=== PATIENT | female | born 1945 | race Caucasian/White ===

== ENCOUNTER 2017-08-10 09:49 | Outpatient (CLI) | payer MEDICARE ==
--- NOTE | 2017-08-10 10:14 | RAD ---
LEFT HIP TWO VIEWS: Clinical history: Left hip pain. FINDINGS: There is minimal joint space loss of the left hip. No significant arthropathy otherwise depicted. The re is no fracture or dislocation. Sclerotic density overlies the lateral aspect of the left ileum. IMPRESSION: No significant abnormality of the left hip. POS: [facility]
--- NOTE | 2017-08-10 10:18 | RAD ---
THREE LATERAL VIEWS OF THE LUMBAR SPINE Technique: Lumbar spine with neutral, flexion and extension positioning. Clinical history: Low back pain with left lower extremity radiculopathy. FINDINGS: Neutral view of the lumbar spine reveals maintained vertebral body heights and alignment. Disc space heights are also relatively well preserved. There is mild to moderate facet osteoarthritis at the low er lumbar spine. Incidental note of atherosclerosis. Evaluation of flexion and extension views reveals no obvious translational motion. Metallic clips overlie the posterior abdomen. IMPRESSION: 1. No significant subluxation or abnormal translation of motion identified. 2. There is mild degenerative changes of the lumbar spine. POS: [facility]
--- NOTE | 2017-08-10 11:22 | CT ---
CT LUMBAR SPINE WITHOUT CONTRAST: Date: 08/10/17 HISTORY: Lumbar radiculopathy. Low back pain radiating down left hip. COMPARISON: None TECHNIQUE: Lumbar spine CT is performed without contrast. Reformatted images are submitted for interpretation. FINDINGS: There is symmetric attenuation of the psoas muscles. There is atherosclerosis of a nonaneurysmal aort a. Gallbladder is surgically absent. Visualized alimentary canal is unremarkable. Visualized solid organs are unremarkable with the except ion of the kidneys. Right kidney is unremarkable. However, there appear to be left parapelvic cysts w ith questionable left-sided hydronephrosis. Evaluation is limited on this exam. Limited evaluation of the contents of the central spinal canal and neural foramina due to technique. Lumbar spine vertebral body height is maintained. There is no fracture. No spondylolisthesis. No spon dylolysis. On the coronal reformatted images, no malalignment. T12-L1: No high grade central canal stenosis or high grade foraminal narrowing. L1-L2: No high grade central canal stenosis or high grade foraminal narrowing. L2-L3: No high grade central canal stenosis. Foramina are patent. L3-L4: No high grade central canal stenosis. Foramina are patent. L4-L5: Generalized disc bulge with ligamentum flavum thickening and facet hypertrophy. Mild central canal st enosis. Mild bilateral foraminal narrowing. L5-S1: No significant posterior disc abnormality. No significant central canal stenosis. Neural foramina are patent bilaterally. IMPRESSION: 1. No high grade central canal stenosis or high grade foraminal narrowing. 2. Mild central canal stenosis at L4-L5 due to disc material and posterior element hypertrophy. POS: [facility]
== END 2017-08-10 09:50 | disposition home or self-care (01) ==
LOC: TBSIIMAG 09:49
PROVIDERS: ATTEND Neurological Surgery
DX: M51.16 Intervertebral disc disorders with radiculopathy, lumbar region (principal); M25.552 Pain in left hip; M48.061 Spinal stenosis, lumbar region without neurogenic claudication; M47.26 Other spondylosis with radiculopathy, lumbar region
CPT/HCPCS: 72100; 72131

== ENCOUNTER 2017-10-20 16:39 | Outpatient (CLI) | payer MEDICARE | END 2017-10-20 16:40 | disposition home or self-care (01) | LOC: BICRAD 16:39 | PROVIDERS: ATTEND Family Medicine | DX: R05 Cough (principal) | CPT/HCPCS: 71046 ==

== ENCOUNTER 2018-02-22 10:13 | Outpatient (CLI) | payer MEDICARE | END 2018-02-22 10:14 | disposition home or self-care (01) | LOC: BICMAMMO 10:13 | PROVIDERS: ATTEND Family Medicine | DX: Z12.31 Encounter for screening mammogram for malignant neoplasm of breast (principal); Z80.3 Family history of malignant neoplasm of breast | CPT/HCPCS: 77063; 77067 ==

== ENCOUNTER 2018-06-07 22:48 | Inpatient (IN) | payer MEDICARE ==
[2018-06-07] MEDS ORDERED: Nitroglycerin 2% Ointment 1 INCH/1 GM Packet ONE (23:24)
[2018-06-07] MEDS ORDERED: Fentanyl 100 MCG/2 ML VIAL ONE (23:24)
[2018-06-07 23:31] LABS: #Basophils 0.1 thou/uL (0.0-0.2); #Eosinphils 0.2 thou/uL (0.0-0.7); #Lymphocytes 1.7 thou/uL (1.20-3.40); #Monocytes 0.4 thou/uL (0.11-0.59); #Neutrophils 6.5 thou/uL (1.40-6.50); %Basophils 0.6 % (0.0-1.0); %Eosinophils 1.8 % (0.0-10.0); %Lymphocytes 19.4 % (21.0-51.0); %Monocytes 4.5 % (0.0-10.0); %Neutrophils 73.7 % (42.0-75.0); Hemoglobin 14.4 g/dL (12.0-16.0); Mean Corpuscular HGB CONC 33.4 g/dL (32.0-36.0); Mean Corpuscular Hemoglobin 31.1 pg (27.0-31.0); Mean Platelet Volume 7.2 fL (7.4-10.4); Platelet Count 260 thou/uL (130-400); RBC Distribution Width 11.9 % (11.5-14.5); Red Blood Cell (RBC) Count 4.63 mill/uL (4.20-5.40); White Blood Cell (WBC) Count 8.9 thou/uL (4.8-10.8)
[2018-06-07 23:37] LABS: PTT 25.1 SEC (22.9-36.1)
--- NOTE | 2018-06-07 23:46 | RAD ---
CHEST ONE VIEW: 06/07/18 HISTORY: Intermittent chest pain. COMPARISON: None. FINDINGS: Atherosclerosis of the aorta. Normal cardiac silhouette. The pulmonary vessels and hilum are normal. Costophrenic angles are clear. No masses or consolidation. No pneumothorax or osseous abnormalities. IMPRESSION: No acute cardiopulmonary process. POS: [facility]
[2018-06-07 23:55] LABS: ALT (SGPT) 16 U/L (8-55); AST (SGOT) 16 U/L (5-34); Albumin 4.1 g/dL (3.4-4.8); Alkaline Phosphatase 85 U/L (40-150); Anion Gap 13 mmol/L (10-20); BUN (Urea Nitrogen) 18 mg/dL (9.8-20.1); Bilirubin, Total 0.5 mg/dL (0.2-1.2); CK (CPK) 69 U/L (29-168); Calc. Creatinine Clearance 0 mL/min (70-130); Calcium 9.8 mg/dL (7.8-10.44); Carbon Dioxide 22 mmol/L (23-31); Chloride 107 mmol/L (98-107); Estimated GFR-MDRD 48; Globulin 3.5 g/dL (2.4-3.5); Glucose 226 mg/dL (83-110); Lipase 18 U/L (8-78); Potassium 4.4 mmol/L (3.5-5.1); Protein, Total 7.6 g/dL (6.0-8.3); Sodium 138 mmol/L (136-145)
[2018-06-07 23:56] LABS: CKMB 1.4 ng/mL (0-6.6); Troponin I Less than 0.010 ng/mL (< 0.028)
[2018-06-08] MEDS ORDERED: Acetaminophen 325 MG TAB PO PRN (00:58)
[2018-06-08] MEDS ORDERED: Ondansetron ODT 4 MG TAB PO PRN (00:58)
[2018-06-08] MEDS ORDERED: Ondansetron PF 4 MG/2 ML Vial IVP PRN (00:58)
[2018-06-08] MEDS ORDERED: Zolpidem Tartrate 5 MG TAB PO PRN (01:01)
[2018-06-08] MEDS ORDERED: Enoxaparin Sodium 60 MG/0.6 ML SYRINGE ONE (01:01)
[2018-06-08] MEDS ORDERED: Sodium Chloride 0.9% 1,000 ML IV SCH (01:30)
[2018-06-08 02:20] VITALS: BMI 22.8
[2018-06-08 02:43] LABS: #Basophils 0.1 thou/uL (0.0-0.2); #Eosinphils 0.3 thou/uL (0.0-0.7); #Lymphocytes 2.5 thou/uL (1.20-3.40); #Monocytes 0.6 thou/uL (0.11-0.59); #Neutrophils 4.5 thou/uL (1.40-6.50); %Basophils 0.7 % (0.0-1.0); %Eosinophils 4.1 % (0.0-10.0); %Lymphocytes 31.5 % (21.0-51.0); %Monocytes 7.7 % (0.0-10.0); %Neutrophils 55.9 % (42.0-75.0); Hemoglobin 12.4 g/dL (12.0-16.0); Mean Corpuscular HGB CONC 33.9 g/dL (32.0-36.0); Mean Corpuscular Hemoglobin 31.3 pg (27.0-31.0); Mean Corpuscular Volume 92.2 fL (78.0-98.0); Mean Platelet Volume 6.9 fL (7.4-10.4); Platelet Count 235 thou/uL (130-400); RBC Distribution Width 11.8 % (11.5-14.5); Red Blood Cell (RBC) Count 3.97 mill/uL (4.20-5.40)
[2018-06-08 03:04] LABS: Troponin I Less than 0.010 ng/mL (< 0.028)
[2018-06-08 03:52] LABS: Anion Gap 9 mmol/L (10-20); BUN (Urea Nitrogen) 16 mg/dL (9.8-20.1); Calc. Creatinine Clearance 54 mL/min (70-130); Carbon Dioxide 23 mmol/L (23-31); Chloride 114 mmol/L (98-107); Estimated GFR-MDRD 69; Glucose 87 mg/dL (83-110); Potassium 4.4 mmol/L (3.5-5.1); Sodium 142 mmol/L (136-145)
[2018-06-08] MEDS ORDERED: HYDROcodone/Acetaminophen 5/325 mg Tablet PO PRN ×2 (03:57→04:23)
[2018-06-08] MEDS ORDERED: Famotidine/PF 20 mg/2ml Vial SLOW IVP SCH ×2 (04:00→09:00)
[2018-06-08] MEDS ORDERED: Levothyroxine Sodium 50 MCG TAB PO SCH (06:00)
[2018-06-08 06:23] LABS: Troponin I Less than 0.010 ng/mL (< 0.028)
[2018-06-08 08:06] VITALS: TEMP 98
[2018-06-08] MEDS ORDERED: Famotidine 20 MG TAB PO SCH ×2 (09:00)
[2018-06-08] MEDS ORDERED: Clopidogrel Bisulfate 75 MG TAB PO SCH (09:00)
[2018-06-08] MEDS ORDERED: Losartan 25 MG TAB PO SCH (09:00)
[2018-06-08] MEDS ORDERED: Amlodipine 5 mg/Benazepril 20 mg CAP PO SCH (09:00)
[2018-06-08] MEDS ORDERED: Gabapentin 300 MG CAP PO SCH (09:00)
[2018-06-08 10:52] LABS: Hemoglobin A1c 5.1 % (4.0-6.0)
[2018-06-08 11:30] VITALS: BP 129/61
--- NOTE | 2018-06-08 11:34 | HP ---
CHIEF COMPLAINT: Chest pain. HISTORY OF PRESENT ILLNESS: This is a 73-year-old female with past medical history of hypothyroidism , hypertension, GERD, asthma presenting with chest pain which is constant. Patient's chest pain has been ongoing since her last stents in 08/09/2016. Patient states that the chest pain is a pressure-l khloe discomfort which is always there. The patient states sometimes it radiates to her neck, sometime s radiates to her arm and ever since she had a stent, she feels like the chest pain has never really resolved. Patient states that today she was on the phone and she started shaking uncontrollably and having diaphoresis and she became disoriented. witnessed that the patient was shaking uncont rollably and was diaphoretic, sweating profusely and this made worry. Patient also stated th at she was also worried as well because she has never sweated this profusely. Therefore, dec ided to bring the patient to the hospital to be evaluated. Patient states that her chest pain is sti ll there, but at this point is 3/10 and it is localized substernally and is not radiating at this poi nt. Patient saw Dr. Lu weeks ago per records and patient also saw Dr. Luciano and the patient had a cardiac stress test on Monday. At this point, patient denies any fever, dizziness, nausea, vomiti ng, palpitations. Patient denies abdominal pain, dysuria, hematuria, hematochezia, melena, but endor ses chest discomfort and shortness of breath. Of note, patient has cardiac stents placed in 2017. P shakila had 3 stents placed at that time. REVIEW OF SYSTEMS: Positive for diaphoresis, chest pain, shortness of breath, and shakiness otherwis e as documented in the HPI. All other systems were reviewed and are negative. FAMILY HISTORY: Reviewed and noncontributory to this visit. PAST MEDICAL HISTORY: Hypothyroidism, hypertension, GERD, hyperlipidemia Asthma. PAST SURGICAL HISTORY: Two hiatal hernia repairs, total hysterectomy, cholecystectomy, cardiac stent s. PSYCHIATRIC HISTORY: No previous psychiatric history. SOCIAL HISTORY: Patient lives at home with her . Denies alcohol use, denies illicit drugs an d denies any smoking history. ALLERGIES: Patient is allergic to AVELOX, CODEINE, HYDROCORTISONE, IODINE, KEFLEX, NEOMYCIN, PENICIL PHIL, PREDNISONE, STREPTOMYCIN, SULFA, TETRACYCLINE, , TOBRAMYCIN. CURRENT MEDICATIONS: Patient is on gabapentin, levothyroxine 50 mcg, metoprolol succinate 50 mg, aml odipine 5 mg, clopidogrel 75 mg, aspirin 81 mg, famotidine 20 mg, pravastatin 20 mg, vitamin D 3000, Zetia 10 mg, Zyrtec. PHYSICAL EXAMINATION: VITAL SIGNS: Blood pressure is 135/70, pulse of 81, respiratory rate of 18, temperature of 98 6, O2% sat of 100. GENERAL: Patient is alert, awake, oriented x3, not in acute distress. Patient is speaking in full s entences. HEENT: Normocephalic and atraumatic. Pupils are equally round and reactive to light. Extraocular m ovements are intact. No scleral icterus. Mucous membranes are moist. NECK: Trachea is midline. No JVD. Full range of motion. No tenderness. LUNGS: Clear to auscultation bilaterally. No wheezing, no rales, no rhonchi is appreciated. CARDIOVASCULAR: Positive S1, S2, regular rate and rhythm. No murmurs, no gallops or rubs appreciate d. ABDOMEN: Soft, nontender, nondistended, positive bowel sounds in all quadrants. EXTREMITIES: 5/5 upper extremity strength, good pulses bilaterally; 5/5 lower extremity strength. G ood pulses bilaterally with no edema noted. NEUROLOGIC: Cranial nerves II-XII grossly intact. No neurologic deficits noted. SKIN: Warm, dry, and intact. PSYCHIATRIC: Normal affect. EKG shows a complete left bundle-branch block, ST elevation in lead II, lead III and lead IV. There is some depressions in lead 1, lead II and aVL, and there are hyperacute T waves. ED COURSE: Patient was given Lovenox, nitro, aspirin, fentanyl, and sodium chloride IV. LABORATORY DATA: WBC 8.9, hemoglobin 14.4, hematocrit 43.1, MCV 93, platelet count is 260. PT is 13 .0, INR 1.0, PTT 25.1. Sodium is 138, potassium is 4.4, chloride is 107, carbon dioxide 22, anion ga p of 13, BUN is 18, creatinine is 1.1. GFR is 48, glucose is 226, calcium is 9.8, AST 16, ALT 16. T roponin is less than 0.010. Lipase is 18. ASSESSMENT AND PLAN: This is a 73-year-old female with extensive cardiac history presenting with, 1. Chest pain, we will rule out acute coronary syndrome. At this point, patient's chest pain is lik brigida unstable angina. Patient has been having ongoing chest pain, which has been constant. At this p oint, we will consult Cardiology and patient will possibly benefit from cardiac catheterization. We will follow up on cardiac enzymes. We will also monitor the patient closely. 2. Diaphoresis and shakiness with etiology unclear; however, we will order TSH and will follow up on TSH levels. At this point, patient is feeling much better. We will continue IV fluids and will con tinue to monitor the patient closely. 3. History of hypothyroidism. At this point, we are ordering TSH levels. We will follow up on T3 l evels. We will monitor the patient closely. We will continue patient on thyroid medication. 4. Coronary artery disease, status post stents. We will continue patient on her home medications. 5. History of hypertension. At this point, patient's blood pressure is controlled. We will continu e patient on home medications. We will monitor the patient's blood pressure closely. 6. History of gastroesophageal reflux disease. We are giving patient Pepcid. We will follow up wit h the patient if patient is feeling much better because the patient has complained of epigastric disc omfort due to her history of gastroesophageal reflux disease. We will order Tums as well. We will f ollow up with the patient. 7. History of asthma, currently stable. We will continue to monitor the patient. 8. Deep venous thrombosis and gastrointestinal prophylaxis.
--- NOTE | 2018-06-08 11:54 | CON ---
DATE OF CONSULTATION: 06/08/2018 REASON FOR CONSULTATION: Chest pain. PRIMARY WASTE REMOVALIST: Dr. Esme Lu. HISTORY OF PRESENT ILLNESS: Mrs. Walker is a very pleasant 73-year-old white female who comes to the hospital for chest pain. She has had this chest pain for many years now. She states that back in 2 017, she was having the pain. It was started from the pelvis and up to the chest and onto her back. She underwent heart catheterization by Dr. Ellis and had to have a stent to her ostial RCA and to h er mid LAD. She did not really have any relief of her symptoms. She states that her pain continued and has continued to this date. More recently, she has switched over to Dr. Lu and has seen him. More recently, she has a Dr. Aly Watson's PA who ordered a stress test which is scheduled t o be done early next week. Mrs. Walker came in this time because the pain which is there quite often , but she stated that she was diaphoretic, which is something new, so decided to come in. She is rul ed out with negative enzymes and EKG is unchanged. She has a left bundle branch block which she has had in the past, this is nothing new. PAST MEDICAL HISTORY: 1. Coronary artery disease with stents to the RCA ostial and mid LAD. This was in 07/2016. 2. Hiatal hernia. 3. Diverticulitis. 4. Internal hemorrhoids. 5. Sinusitis. 6. Urinary tract infections. 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 8. Fibromyalgia. 9. Hyperlipidemia. 10. Hypertension. PAST SURGICAL HISTORY: 1. Tonsillectomy. 2. Adenoidectomy. 3. Deviated septum surgery. 4. Right ovarian cyst removal. 5. Cholecystectomy. 6. Hysterectomy. 7. Rectal prolapse surgery. 8. Cardiac catheterization with stent as above. OUTPATIENT MEDICATIONS: Include; 1. Levothyroxine 50 mcg a day. 2. Amlodipine/benazepril 5/20 mg a day. 3. Plavix 75 mg b.i.d. 4. Zyrtec 10 mg a day. 5. Gabapentin 300 mg 3 times a day. 6. Famotidine 20 mg a day. 7. Vitamin D3. 8. Zolpidem 10 mg a day. 9. Aspirin 81 a day. ALLERGIES: 1. CEPHALEXIN gives her rash. 2. CODEINE gives her nausea and vomiting. 3. HYDROCORTISONE gives her rash. 4. IODINE gives her rash. 5. CLINDAMYCIN gives her rash. 6. MOXIFLOXACIN gives her rash. 7. NEOMYCIN gives her rash. 8. PENICILLIN, swelling and rash. 9. PREDNISONE, nausea and vomiting. 10. SPECTINOMYCIN, rash. 11. SULFA DRUGS. 12. TETRACYCLINE. 13. THIMEROSAL. 14. TOBRAMYCIN. FAMILY HISTORY: Noncontributory. SOCIAL HISTORY: No alcohol, tobacco or drugs. REVIEW OF SYSTEMS: A 12-point review of systems was done and is all negative unless stated in the hi story of present illness. PHYSICAL EXAMINATION: VITAL SIGNS: Temperature 98.0, pulse 56, respiration rate 18, O2 sat 96% on room air, blood pressure 104/51. GENERAL: Awake, alert, oriented x3, in no distress. HEENT: Normocephalic, atraumatic. NECK: Supple. LUNGS: Clear. CARDIOVASCULAR: S1, S2, no S3, S4, no murmurs or rubs. ABDOMEN: Soft, positive bowel sounds. EXTREMITIES: No edema. SKIN: Warm and dry. LABORATORY WORK: Reviewed. CBC is unremarkable. Coags were unremarkable. Chemistry was unremarkab le. Troponin is undetectable x3 with normal CK-MB. Albumin of 4.1. TSH of 0.4. Lipase was 18. EKG was reviewed, left bundle branch block. This is not new. There is a left bundle branch block on EKG done on 05/24/2018 in our office. ASSESSMENT AND PLAN: 1. Chest pain: Could represent angina. 2. Fibromyalgia. PLAN: 1. She certainly has risk factors for this being angina with her previous stents. Her RCA stent was an ostial stent and the mid LAD stent from the report seems to have been a very diffusely diseased v essel with good results. I offered Mrs. Walker a heart catheterization. I told her that I would pro bably prefer this way of risk stratification as this would tell us once and for all of this pain is c oming from her heart or not. She declines at this moment given that she remembers having had a princess terization last time and she was severely bruise for several weeks afterwards. She tells me that she wants to exhaust any medical therapies that are available before having to undergo a heart catheteri zation. She will agree to a heart catheterization if that is the only thing left or this is an emerg ency, which is not at this time. 2. Her blood pressure is borderline low, so I will add Ranexa 500 mg twice a day to her regimen, I w ill give her samples. She is already scheduled for a stress as an outpatient in the next couple of d ays. I will assume this is angina and treat her as such. If she continues to have chest pain in the next few weeks, she will be a candidate for heart catheterization regardless what the stress test sh ows. 3. She would like to have this done through her right radial approach. She is 5 feet 1-1/2 inches, so this may be difficult, but we may attempt this. 4. We will have her walk around the halls before discharging her and if she is asymptomatic, she edwin l be discharged home later today. DISPOSITION: 1. Patient refuses heart catheterization at this time. 2. Patient wants to exhaust medications first. 3. We will add Ranexa 500 mg b.i.d. We will give samples today. 4. I have her follow up in the office as she is already scheduled for an outpatient stress test in t he next few days. 5. Will follow up with Dr. Lu.
[2018-06-08] MEDS ORDERED: Mirtazapine 15 MG TAB PO SCH (21:00)
== END 2018-06-08 14:45 | disposition home or self-care (01) | DRG 303 ==
LOC: ERS 22:48 → 2NO 23:20
PROVIDERS: ADMIT Internal Medicine; ATTEND Internal Medicine
DX: I25.110 Atherosclerotic heart disease of native coronary artery with unstable angina pectoris (principal); Z98.61 Coronary angioplasty status; I10 Essential (primary) hypertension; K21.9 Gastro-esophageal reflux disease without esophagitis; J45.909 Unspecified asthma, uncomplicated; R61 Generalized hyperhidrosis; Z53.20 Procedure and treatment not carried out because of patient's decision for unspecified reasons; E78.5 Hyperlipidemia, unspecified; M79.7 Fibromyalgia
CPT/HCPCS: 36415; 71045; 80048; 80053; 82550; 82553; 83036; 83690; 84443; 84484; 85025; 85610; 85730; 93005; 96361; 96372; 96374; J1650; J3010; S0028

== ENCOUNTER 2019-02-26 08:35 | Outpatient (CLI) | payer MEDICARE ==
--- NOTE | 2019-02-26 09:39 | MMO ---
Bilateral MAMMO Bilat Screen [facility]. CLINICAL HISTORY: Patient is 74 years old and is seen for screening. The patient has no personal history of cancer. The patient has a history of bilateral Cyst Aspiration at age 56 - benign. VIEWS: The views performed were: bilateral craniocaudal with tomosynthesis and bilateral mediolateral oblique with tomosynthesis. FILMS COMPARED: The present examination has been compared to prior imaging studies performed at [facility] on 08/10/2015, 02/09/2016, 02/21/2017 and 02/22/2018. MAMMOGRAM FINDINGS: The breasts are heterogeneously dense, which could obscure a lesion on mammography. There are no suspicious masses, calcifications or areas of architectural distortion. There are benign appearing calcifications in both breasts. There are no suspicious masses, suspicious calcifications, or new areas of architectural distortion. IMPRESSION: THERE IS NO MAMMOGRAPHIC EVIDENCE OF MALIGNANCY. A ROUTINE FOLLOW-UP MAMMOGRAM IN 1 YEAR IS RECOMMENDED. THE RESULTS OF THIS EXAM WERE SENT TO THE PATIENT. ACR BI-RADS Category 2 - Benign finding MAMMOGRAPHY NOTE: 1. A negative mammogram report should not delay a biopsy if a dominant of clinically suspicious mass is present. 2. Approximately 10% to 15% of breast cancers are not detected by mammography. 3. Adenosis and dense breasts may obscure an underlying neoplasm. Reported by: PALLAVI THOMSON MD Electonically Signed: [id number]
== END 2019-02-26 08:36 | disposition home or self-care (01) ==
LOC: BICMAMMO 08:35
PROVIDERS: ATTEND Internal Medicine
DX: Z12.31 Encounter for screening mammogram for malignant neoplasm of breast (principal)
CPT/HCPCS: 77063; 77067

== ENCOUNTER 2019-07-23 17:16 | Emergency (ER) | payer MEDICARE ==
[2019-07-23] MEDS ORDERED: HYDROcodone/Acetaminophen 5/325 mg Tablet ONE (18:02)
[2019-07-23] MEDS ORDERED: Ketorolac Tromethamine 60 MG/2 ML VIAL ONE (18:02)
--- NOTE | 2019-07-23 18:35 | RAD ---
TWO VIEWS RIGHT SHOULDER: 07/23/19 PROVIDED CLINICAL HISTORY: Fall with pain. FINDINGS: There is a mildly displaced fracture involving the right proximal humeral metaphyseal region. The gle nohumeral relationship appears normal. Acromioclavicular degenerative changes are seen. The visualize d right lung field appears clear. IMPRESSION: Displaced humeral neck fracture. POS: [facility]
== END 2019-07-23 18:36 | disposition home or self-care (01) ==
LOC: ERS 17:16
DX: S42.211A Unspecified displaced fracture of surgical neck of right humerus, initial encounter for closed fracture (principal); E03.9 Hypothyroidism, unspecified; I10 Essential (primary) hypertension; E78.00 Pure hypercholesterolemia, unspecified; J45.909 Unspecified asthma, uncomplicated; Z95.5 Presence of coronary angioplasty implant and graft; W01.0XXA Fall on same level from slipping, tripping and stumbling without subsequent striking against object, initial encounter
CPT/HCPCS: 96372; J1885

== ENCOUNTER 2025-03-28 14:47 | Outpatient (CLI) | payer MEDICARE | END 2025-03-28 14:48 | disposition home or self-care (01) | LOC: BICMAMMO 14:47 | PROVIDERS: ATTEND Family Medicine | DX: M81.0 Age-related osteoporosis without current pathological fracture (principal) | CPT/HCPCS: 77080 ==